=== PATIENT | female | born 1990 | race Asian ===

== ENCOUNTER 2022-02-06 04:44 | Emergency (ER) | payer OTHER ==
[~2022-02-06] VITALS: Ht 152.4 cm; Wt 59.0 kg
--- NOTE | 2022-02-06 05:40 | NUR ---
TO ER BED 11. BIBFRIEND C/O ETOH POISONING AND N/V X TODAY. DENIES ANY CHEST PAIN. NOT IN RESPIRATORY DISTRESS. CONNECTED TO MONITOR. CHOKING PRECAUTIONS IN PLACE. AWAITING MD BOWMAN
--- NOTE | 2022-02-06 06:03 | NUR ---
URINE COLLECTED AND SENT TO LAB
[2022-02-06] MEDS ORDERED: ONDANSETRON HCL/PF 4 MG/2 ML VIAL ONE (06:15)
--- NOTE | 2022-02-06 06:27 | NUR ---
20G IV LINE STARTED AT [facility]. BLOOD DRAWN AND SENT TO LAB
[2022-02-06] MEDS ORDERED: ONDANSETRON HCL/PF - ER 4 MG/2 ML VIAL IV ONE (06:30)
[2022-02-06] MEDS ORDERED: IV NS 0.9% 1,000 ML IV ONE (06:30)
[2022-02-06 07:23] LABS: CALCIUM, SERUM 9.5 mg/dL (8.5-10.1); CREATININE 1.1 mg/dL (0.6-1.3); POTASSIUM 3.5 mmol/L (3.5-5.1)
[2022-02-06] MEDS ORDERED: ONDA4TAB11 PO (07:35)
--- NOTE | 2022-02-06 07:44 | NUR ---
IV removed. Catheter intact and site benign. Pressure and 4x4 applied to site. No bleeding noted.
--- NOTE | 2022-02-06 07:44 | NUR ---
the patient feels better; DC home.
[2022-02-06 07:45] VITALS: BP 131/81
== END 2022-02-06 07:45 | disposition home or self-care (01) ==
LOC: ER 04:56
DX: T51.91XA Toxic effect of unspecified alcohol, accidental (unintentional), initial encounter (principal); R11.2 Nausea with vomiting, unspecified; Y92.89 Other specified places as the place of occurrence of the external cause
CPT/HCPCS: 36415; 80048; 96361; 96374; 99283; J2405 ×2; J7030